=== PATIENT | female | born 1985 | race Caucasian/White ===

== ENCOUNTER → 2016-09-18 | Outpatient (CLI) | payer OTHER ==
[~2016-09-18] VITALS: Ht 167.6 cm; Wt 66.7 kg
[~2016-09-18] MED LIST: HYDROCODONE-AP1 EAC6 PO; IBUPROFEN 200200 M1 PO; MEDROLDOSEPACK PO
--- NOTE | ~2016-09-18 | HPC ---
Formerly [facility] [address] [place] [address] PAIN MANAGEMENT CONSULTATION Name: OMERO KYLE Room #: REG [facility].#: [id number] Admission: 09/18/16 Attend Phys: Zach Ramirez DO Discharge: Date of : 87 Report #: [id number] THIS REPORT FOR: //name// CC: FAM physician/PCP Zach Lacey MD DATE OF SERVICE: 09/18/2016 REFERRING PHYSICIAN: Catherine Lacey M.D. CHIEF COMPLAINT: Neck pain and left upper extremity pain with paresthesias. HISTORY OF PRESENT ILLNESS: As you know, the patient is an extremely pleasant 31-year-old female who was referred to our service for ongoing neck pain and left upper extremity pain with paresthesias. The patient states her pain began on 07/28/2016. She states she woke one morning while she was lying on her stomach. She stated her neck was "in odd position". She states the pain began from there and it progressively worsened. She is now experiencing numbness and tingling radiating down the left arm. She underwent MRI of the cervical spine, which shows significant changes at the C5-C6 and C6-C7 levels. She was referred to our clinic after initiating physical therapy without improvement in symptoms. She was doing stretching, heat and cold compresses, ultrasound therapy and Biofreeze. This did not provide much in the way of benefit. She has also sought chiropractic manipulation and has undergone 7 visits, but no help has been noted. She indicates today pain is continuous. Describes the pain as burning, aching and throbbing; places current pain score as 6/10, daily averages at 7/10, worst pain has been 9/10. The patient states pain is constant, improved with nothing to date. Lying down and medications tend to help slightly. She has been referred to our clinic after MRI was obtained for discussions of treatment for cervical radiculopathy. PAST MEDICAL HISTORY: None. PAST SURGICAL HISTORY: None. SOCIAL HISTORY: The patient denies tobacco, IV or illicit drug use. She admits to approximately 3 alcoholic beverages per week. 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 She is unaccompanied today. REVIEW OF SYSTEMS: Positive for fatigue, weakness, nausea, vomiting, neck pain and left upper extremity pain with paresthesias. All other review of systems negative per 12-point review of systems, other than those listed in the history of present illness. [address] [address] PAIN MANAGEMENT CONSULTATION Name: OMERO KYLE Room #: REG [facility]#: [id number] Admission: 09/18/16 Attend Phys: Zahc Ramirez DO Discharge: Date of : 86 Report #: [id number] Pain impact score 50/70, indicating severe interference to daily activities secondary to pain. ALLERGIES: No known drug allergies. CURRENT MEDICATIONS: Ibuprofen 400 mg 3 times a day, hydrocodone/acetaminophen 5/325 one tab p.o. q. 8 hours p.r.n. for pain. IMAGING: MRI cervical spine, obtained 09/12/2016, shows at C5-C6, a large left lateral recess focal disk extrusion, effacing the proximal left C7 nerve root near its origin; pfxugtkm-kn-tvnvqa left paracentral canal stenosis. C6-C7, rsjbpyks-ga-qtirun central canal stenosis due to a moderate right paracentral disk herniation flattening the spinal cord. At C4-C5, there is mild central canal stenosis due to mild right paracentral broad-based disk herniation. C3-C4, small focal central disk herniation with mild central canal stenosis. PHYSICAL EXAMINATION: VITAL SIGNS: Blood pressure 126/82, pulse 80 and respiratory rate 16, unlabored. The patient is 98% on room air. Height 5 feet 6 inches tall, weight 147 pounds and BMI calculated 23.7. GENERAL: Well-developed, well-nourished and well-hydrated 31-year-old female, appearing her stated age, placing current pain score at 6/10. HEENT: Normocephalic, atraumatic. Pupils equal, round and reactive to light. Extraocular muscles are intact. Sclerae nonicteric, without injection. NEUROLOGIC: Cranial nerves 2-12 grossly intact. Speech is fluent. The patient deemed an excellent historian. LUNGS: Clear. No wheeze, rhonchi or rales. CARDIOVASCULAR: Regular. No appreciable gallop or rub. ABDOMEN: Soft, nontender and nondistended. Normoactive bowel sounds. EXTREMITIES: Show no clubbing, no cyanosis and no edema. MUSCULOSKELETAL: Upper extremity strength appears equal and symmetrical at 5/5. Some giveaway strength noted with biceps flexion on the left when compared to the right. Spurling's test positive to left, negative right. There is normal tactile sensation from C5-T1 dermatomes. Deep tendon reflexes equal and symmetrical at biceps, brachioradialis and triceps. Muscle bulk and tone equal and symmetrical in the upper extremities. Cervical provocation testing including extension, rotation and lateral flexion to the left causes intensification of pain. ASSESSMENT: 1. Cervical radiculopathy. 2. Displacement of a cervical intervertebral disk with radiculopathy. 3. Spinal stenosis of the cervical spine. 4. Cervical spondylosis with radiculopathy. PLAN: [facility] [address] [place] [address] PAIN MANAGEMENT CONSULTATION Name: OMERO KYLE Room #: REG [facility].#: [id number] Admission: 09/18/16 Attend Phys: Zach Ramirez DO Discharge: Date of : 87 Report #: [id number] 1. The patient has been referred to our service for evaluation for suspected cervical radiculopathy. The findings on physical exam correlate with the findings in the MRI of the cervical spine obtained on the 12 of September. Unfortunately, the patient is suffering from a large disk extrusion at the C5-C6 level, causing impingement of the C6 nerve root, radiating down the left upper extremity. She also has findings at the C6-C7 level, which shows eemcyqsh-og-rqjgkk central canal stenosis with rightward disk extrusion, though this is not causing any symptoms at present. The patient and I discussed the treatment options for cervical radicular pain secondary to displaced cervical intervertebral disks and central canal stenosis as well as the lateral recess stenosis. We discussed the following with the patient today. We discussed physical therapy, stretching exercises and traction techniques. We discussed medication management with addition of a neuropathic pain medication for controlling neuropathic symptoms as well as the addition of a Medrol Dosepak to reduce the inflammatory process that is causing acute symptoms. We discussed continuation of mild opioids for pain control. We also discussed cervical epidural injections under fluoroscopic guidance and surgical options. After reviewing risks and benefits of all proposed treatment options, the patient chose to begin with medication management, but does wish to begin the authorization process for cervical epidural injection. The patient was advised that third-constitution party payer restrictions with prior authorization be obtained before she could undergo an epidural injection. This authorization will take somewhere between 4-7 working days. We will begin the process immediately and contact the patient once we have achieved this authorization. We will start the patient on medication as follows: For pain control, we await the preapproval of a cervical epidural injection. 2. The patient was provided Medrol Dosepak. She is to take the medication as directed. This should help alleviate some of the discomfort she is experiencing and decrease the acute phase inflammatory response. She will start this medication immediately. 3. We have provided the patient with a sample pack of Lyrica. She will start at 75 mg dose 2 hours before bedtime tonight. She will continue 75 mg for 3 nights, then escalate to a 150 mg, assuming no side effects and no improvement in symptoms. If she notes improvement in symptoms, stabilize the dose of 75 mg; otherwise, jump to 150 mg, assuming no side effects such as sleepiness, disorientation, confusion or mental slowing. If she notes any side effects, contact our clinic after discontinuing the medication. 4. The patient and I spent 34 minutes of time reviewing her MRI today and discussing how it correlates with her findings. I believe she has a good understanding of the MRI and can make better decisions based on her specific pathology. We are hopeful that our proposed treatment options will be beneficial for her. They are the standard of care for patients with cervical radicular symptoms that do not wish surgical options. 5. We wish to thank the referring team for the opportunity to see the patient [address] [address] PAIN MANAGEMENT CONSULTATION Name: KYLEOMERO Room #: REG [facility]#: [id number] Admission: 09/18/16 Attend Phys: Zach Ramirez DO Discharge: Date of : 87 Report #: [id number] in consultation. We will keep you apprised of her response to treatment as we address her cervical radicular symptoms secondary to cervical spinal stenosis and a displaced cervical intervertebral disk. Again, we wish to thank you for the opportunity to participate in her care. By: [id number] Zach Ramirez DO /nt
[2016-09-18 08:14] VITALS: BP 126/82
== END | disposition home or self-care (01) ==
LOC: PAIN 06:42
DX: M50.122 Cervical disc disorder at C5-C6 level with radiculopathy (principal); M48.02 Spinal stenosis, cervical region; M47.22 Other spondylosis with radiculopathy, cervical region

== ENCOUNTER → 2016-10-08 | Outpatient (CLI) | payer OTHER ==
[~2016-10-08] VITALS: Ht 167.6 cm; Wt 68.2 kg
[~2016-10-08] MED LIST changes: +NEURONTIN 300300 M1 PO
--- NOTE | ~2016-10-08 | HPC ---
[facility] [place] [address] PAIN MANAGEMENT CONSULTATION Name: OMERO KYLE Room #: REG [facility].#: [id number] Admission: 10/08/16 Attend Phys: Zach Ramirez DO Discharge: Date of : 86 Report #: [id number] THIS REPORT FOR: //name// CC: [facility] physician/PCP Zach Lacey MD DATE OF SERVICE: 10/08/2016 CHIEF COMPLAINT: Neck pain, left upper extremity pain and paresthesias. HISTORY OF PRESENT ILLNESS: As you know, the patient is an extremely pleasant 31-year-old female referred to our service for ongoing neck pain, left upper extremity pain and paresthesias. We saw the patient on 09/18/2016, where we diagnosed the patient with cervical radiculopathy secondary to the displacement of cervical intervertebral disk causing radicular symptoms. She was started on Lyrica for neuropathic pain control and did note at 275 mg tablets at night improvement in symptoms. Unfortunately, third republican payer restrictions would not cover this medication further. She returns for medication changes and to undergo the first in series of cervical epidural injections as we have received precertification for the patient to do so. She returns today stating a pain level of 4/10. States her pain is aching, throbbing, numbness, tingling, places pain mainly on the left side, left upper extremity radiating into the hand. She denies new injury, new trauma or any issue that may have progressed her symptoms. She returns today for epidural injection under fluoroscopic guidance in the cervical region and medication changes. ALLERGIES: No medication allergies. CURRENT MEDICATIONS: Hydrocodone 5/325 one tab every 4 hours p.r.n. for pain, ibuprofen 400 mg twice a day, Lyrica 75 mg 2 tabs p.o. at bedtime. SOCIAL HISTORY: The patient denies tobacco, IV or illicit drug use. Admits to approximately 3 alcoholic beverages per week. She is a marketing sales consultant, working, not receiving workmen's compensation, unaccompanied today. PHYSICAL EXAMINATION: VITAL SIGNS: Blood pressure 130/87, pulse 70, respiratory rate 14, unlabored. The patient is 98% on room air. Height 5 feet 6 inches tall, weight 150.4 pounds, BMI calculated 24.3. GENERAL: Well-developed, well-nourished, well-hydrated 31-year-old female appearing her stated age, placing current pain score 4/10. HEENT: Normocephalic, atraumatic. Pupils are equal, round, reactive to light. Extraocular muscles are intact. EXTREMITIES: Show no clubbing, no cyanosis, no edema. MUSCULOSKELETAL: Spurling's test positive left, negative right. [facility] [address] [place] [address] PAIN MANAGEMENT CONSULTATION Name: OMERO KYLE Room #: REG [facility].#: [id number] Admission: 10/08/16 Attend Phys: Zach Ramirez DO Discharge: Date of : 86 Report #: [id number] extremity strength equal and symmetrical 5/5, intact to light touch from C5-T1 dermatomes. ASSESSMENT: 1. Cervical radiculopathy. 2. Displacement of cervical intervertebral disk with radiculopathy. 3. Cervical spinal stenosis. 4. Cervical facet arthropathy. PLAN: 1. The patient has returned today in followup visit to undergo cervical epidural injection under fluoroscopic guidance. We have received precertification for the patient to undergo the procedure. We have discussed with the patient the procedure itself, its risks and its benefits. We discussed risks including but not necessarily limited to bleeding, bruising, infection, worsening pain, no relief of pain, also risk of temporary or permanent muscle weakness, temporary or permanent nerve damage, possible postdural puncture headache and . The patient states understood and wished to proceed. 2. The patient received a letter from her third republican payer that coverage for Lyrica would not be available. We will adjust the patient's medications to gabapentin and determine if neuropathic pain medications such as these will be beneficial. The patient did note good efficacy with the Lyrica at 150 mg at night. She was receiving good benefit, no side effects. We will hopeful to see similar improvement with gabapentin. 3. The patient was provided a prescription of gabapentin 300 mg dose. She will take 2 tabs p.o. at bedtime for 5 nights, then 3 tabs p.o. at bedtime for 5 nights, then 1 tab p.o. q.a.m. 3 tabs p.o. at bedtime. She was given #120, no refills. The patient was advised to watch for side effects such as somnolence, decrease in mental acuity, disorientation, confusion with the use of this medication. If she notes side effects with this medication, she is to contact our clinic for adjustments in therapy. 4. We will see the patient back in followup visit in approximately 2-3 weeks. At that time, we will review efficacy of the cervical epidural injection and determine if a repeat injection would be warranted. PROCEDURE NOTE DESCRIPTION OF PROCEDURE: C7-T1 cervical epidural steroid injection under fluoroscopic guidance. This is the first procedure of the first series that the patient is undergoing. After obtaining written consent, the patient was taken back to the fluoroscopy suite and placed in a prone position with separate pillows under chest and forehead to decrease cervical lordosis. The skin overlying the cervical area was prepped and draped in an aseptic fashion. The C7-T1 vertebral interspace [facility] [address] [place] [address] PAIN MANAGEMENT CONSULTATION Name: OMERO KYLE Room #: REG [facility].#: [id number] Admission: 10/08/16 Attend Phys: Zach Ramirez DO Discharge: Date of : 86 Report #: [id number] was identified by AP fluoroscopy. The skin and subcutaneous tissue overlying the target site of injection was anesthetized using 3 mL of 1% lidocaine. A 20-gauge 3-1/2 inch Tuohy needle was advanced under fluoroscopic guidance toward the epidural space using a midline approach. The epidural space was identified using a loss of resistance to air technique. After negative aspiration for heme or cerebrospinal fluid, a total of 1 mL of Omnipaque was injected. A cervical epidurogram was confirmed using AP and oblique fluoroscopy. After negative aspiration for heme or cerebrospinal fluid, 5 mL of a solution containing 2 mL 40 mg per mL 80 mg total triamcinolone, 3 mL of lidocaine 1% was injected in increments. Contrast spread was noted from posterior epidural space. The needle was then retracted approximately [facility] and the needle track was flushed with 1 mL of 1% lidocaine. There were no apparent new sensory deficits in the upper extremities present following the procedure. A sterile bandage was placed over the injection site. The heart rate, pulse oximetry and blood pressure were continuously monitored after the procedure. There were no apparent complications. The patient tolerated the procedure well and was carefully escorted in the recovery room in stable condition. After meeting discharge criteria, the patient was discharged home. By: [id number] Zach Ramirez DO /nt
[2016-10-08 08:25] VITALS: BP 130/87
== END ==
LOC: PAIN 06:41
DX: M50.10 Cervical disc disorder with radiculopathy, unspecified cervical region (principal); M48.02 Spinal stenosis, cervical region; M12.88 Other specific arthropathies, not elsewhere classified, other specified site

== ENCOUNTER → 2016-10-22 | Outpatient (CLI) | payer OTHER ==
[~2016-10-22] VITALS: Ht 167.6 cm; Wt 67.1 kg
--- NOTE | ~2016-10-22 | HPC ---
[facility] [address] [place] [address] PAIN MANAGEMENT CONSULTATION Name: OMERO KYLE Room #: REG [facility]..#: [id number] Admission: 10/22/16 Attend Phys: Zach Ramirez DO Discharge: Date of : 86 Report #: [id number] THIS REPORT FOR: //name// CC: Zach Lacey MD DATE OF SERVICE: 10/22/2016 REFERRING PHYSICIAN: Catherine Lacey MD. CHIEF COMPLAINT: Neck pain, left upper extremity pain and paresthesias. HISTORY OF PRESENT ILLNESS: As you know, the patient is a very pleasant 31-year-old female, who returns today in followup visit, reporting 60% improvement in overall pain with the cervical epidural injection provided at last visit. She is now placing the pain score at no greater than 4/10. She indicates decreasing neck pain and paresthesias in the left upper extremity. She states that overall she is extremely pleased with the initial injection, returning in followup visit to discuss options for treatment. At present, she states that her pain is tolerable, but is considering a possible repeat epidural injection to build on the success of previous intervention. She also wishes to discuss possible changes in medication therapy and to address the possibility of utilizing some physical therapy. She denies any new injury or new trauma that may have led to progression of symptoms. ALLERGIES: No known drug allergies. CURRENT MEDICATIONS: Hydrocodone 5/325 one tab every 4 hours p.r.n. for pain, ibuprofen 400 mg once a day, Lyrica 150 mg p.o. at bedtime. SOCIAL HISTORY: The patient denies tobacco, IV, or illicit drug use. Admits to three alcoholic beverages per week. She is a strategic marketing specialist, working, not receiving workmen's compensation, and unaccompanied today. IMAGING: No new imaging available. PHYSICAL EXAMINATION: VITAL SIGNS: Blood pressure 129/81, pulse 77, respiratory rate 16, unlabored. The patient is 100% on room air, height 5 feet 6 inches tall, weight 148 pounds, BMI calculated at 23.9. GENERAL: Well developed, well nourished, and well hydrated. A 31-year-old female appearing her stated age. Pain is rated at around 3-4/10. HEENT: Normocephalic and atraumatic. Pupils are equal, round, and reactive to light. Extraocular muscles are intact. EXTREMITIES: Showed no clubbing, no cyanosis, no edema. [facility] [address] [place] [address] PAIN MANAGEMENT CONSULTATION Name: OMERO KYLE Room #: REG [facility]#: [id number] Admission: 10/22/16 Attend Phys: Zach Ramirez DO Discharge: Date of : 86 Report #: [id number] MUSCULOSKELETAL: Spurling's test positive on the left, negative right. Upper extremity strength equal and symmetrical. Muscle bulk and tone equal and symmetrical. Cervical provocation including rotation, lateral flexion to the left causes intensification of pain. ASSESSMENT: 1. Cervical radiculopathy. 2. Displacement of a cervical intervertebral disk with radicular symptoms. 3. Cervical spinal stenosis. 4. Chronic intractable pain. PLAN: 1. The patient returns today in followup visit, where we have discussed the efficacy of the initial epidural injections. She reports a 60% improvement in overall pain that is ongoing. We have recommended the possibility of undergoing the next in the series of epidural injections to build on the success of previous intervention. The patient wishes to have preauthorization made, so that if she needs this injection, she could certainly undergo the procedure. We will begin the authorization process immediately. It should take somewhere between 4-7 working days. We will contact the patient once we have this authorization to undergo the second in the series of cervical epidural injections in hopes of improving pain. 2. We had to exchange the patient's Lyrica for gabapentin as coverage was not going to be possible with her insurance at this time. She is now taking 600 mg of gabapentin at night. She is experiencing no side effects to the medication, but continues to experience paresthesias in the left upper extremity. We have requested the patient increase to 900 mg for the next 7 days. If no side effects, no improvement in symptoms, then increase to 1200 mg. If she is doing well at 900 mg, she is to stabilize at that dose without further escalation. She has medication available to her currently in the form of gabapentin. We did provide her a refill of prescription of 120, 300 mg tablets to reach the titration and maintain this titration, assuming improvement in symptoms. 3. The patient will be sent for physical therapy twice a week for 4 weeks. We have given her a prescription to [facility] in [place]. The patient will begin physical therapy with [facility], starting as early as possible. We will see her back in followup visit, once we have authorization for the cervical epidural injection, and we will have her then stop physical therapy for a week, while she recovers from that procedure, and then restart the physical therapy assuming that she is able to start PT this week. 4. No other changes were made in the patient's treatment today. We will see [address] [address] PAIN MANAGEMENT CONSULTATION Name: OMERO KYLE Room #: REG [facility].#: [id number] Admission: 10/22/16 Attend Phys: Zach Ramirez DO Discharge: Date of : 86 Report #: [id number] her back for the epidural injection requested. We are hopeful the medications and physical therapy, will also improve her symptoms. <ELECTRONICALLY SIGNED> By: Zach Ramirez DO 10/23/16 0937 [id number] Zach Ramirez DO /nt
[2016-10-22 08:25] VITALS: BP 129/81
== END ==
LOC: PAIN 06:52
DX: M79.622 Pain in left upper arm (principal); M50.10 Cervical disc disorder with radiculopathy, unspecified cervical region; M48.02 Spinal stenosis, cervical region; G89.29 Other chronic pain

== ENCOUNTER → 2020-07-25 | Outpatient (CLI) | payer OTHER ==
[~2020-07-25] VITALS: Ht 167.6 cm; Wt 71.2 kg
[~2020-07-25] MED LIST changes: +MELOXICAM7.5 MG PO; +TIZANIDINE HCL2 M1 PO
[2020-07-25 09:26] VITALS: BP 128/79
--- NOTE | 2020-07-25 09:27 | NUR ---
Pain Clinic Assessment: 1. History of Osteoarthritis: Not Applicable History of Rheumatoid Arthritis: Not Applicable 2. Height: 5 ft. 6 in. 167.6 cm. Weight: 157.0 lb. oz. 71.215 kg. Patient's BMI: 25.4 3. Vital Signs: BP: 128/79 Pulse: 73 Resp: 16 Temp: 02 Sat: 100 ECG Mon: 4. Pain Intensity: 5 5. Fall Risk: Dizziness: N Needs help standing or walking: N Fallen in the last 3 months: N Fall risk comments: 6. Patient on Blood Thinner: None 7. History of Hypertension: N 8. Opioid Therapy greater than 6 weeks: N Opiate Contract Signed: 9. Risk Assessment Tool Provided: LOW-1 10. Functional Assessment Tool: 39/ 11. Recreational Drug Use: Never Drug Type: Tobacco Use: Never Smoker Tobacco Type: Amount or Packs/day: How Many Years: Alcohol Use: Yes Frequency: Weekly Quant: 3
--- NOTE | 2020-07-26 11:53 | HPC ---
[facility] [place] [address] PAIN MANAGEMENT CONSULTATION Name: OMERO KYLE Room #: REG [facility].#: [id number] Admission: 07/25/20 Attend Phys: Zach Ramirez DO Discharge: Date of : 87 Report #: [id number] THIS REPORT FOR: cc: Isaac Cooney MD, M. Kathryn MD Johnson, James E. DO ~ DATE OF SERVICE: 07/25/2020 REFERRING PHYSICIAN: Dr. Charles. CHIEF COMPLAINT: Neck pain, left upper extremity pain with paresthesias. HISTORY OF PRESENT ILLNESS: As you know, the patient is a very pleasant 35-year-old female who reports acute onset of neck pain, left upper extremity pain with paresthesias that presented in 12/2019. The patient denies any specific injury or trauma that may have led to symptom development. She has trialled wzzh-iin-wxgcwer medications along with rest, relaxation, repositioning of her head during sleep. She has tried multiple different pillows to assist in pain control. She has even sought chiropractic manipulation 5 different times, which provided some improvement in symptoms, but nothing prolonged. She continues to experience pain at a level of 5+/10 radiating from the neck down the left arm into her hand. Due to lack of improvement with conservative treatment, the patient was referred to our clinic. She has undergone MRI of the cervical spine, which showed fairly significant changes at the C4-C5, C5-C6 and C6-C7 levels. The patient reports today her pain is continuous and steady. She describes the pain as burning, aching, throbbing, numbness and tingling. She places current pain score 5+/10, daily average at 5-7/10, worst the pain has been is 9-10/10. The patient states her pain is exacerbated with sitting, sleeping and cervical rotation. Pain improves with nothing to date. She has been referred to our service to discuss treatment options for possible cervical radiculopathy. PAST MEDICAL HISTORY: None. PAST SURGICAL HISTORY: None. SOCIAL HISTORY: The patient denies tobacco, IV or illicit drug use. Admits an approximately 3 alcoholic beverages per week. She is currently employed in [employer], working, not receiving workmen's compensation nor is she trying to obtain discrete benefits. She is not in litigation in regards to pain. She is unaccompanied at today's visit. REVIEW OF SYSTEMS: Positive for fatigue and weakness, frequent and recurrent headaches, nocturia, numbness and tingling sensations, neck pain and upper back pain and left upper extremity pain with paresthesias. All other review of [address] [address] PAIN MANAGEMENT CONSULTATION Name: OMERO KYLE Room #: REG [facility].#: [id number] Admission: 07/25/20 Attend Phys: Zach Ramirez DO Discharge: Date of : 87 Report #: [id number] systems negative per 12-point review of systems other than those listed in history of present illness. Pain impact score 39/70 indicating moderate interference of daily activities secondary to pain. ALLERGIES: No known drug allergies. CURRENT MEDICATIONS: Meloxicam 7.5 mg once a day, tizanidine 2 mg p.r.n. IMAGING: MRI cervical spine obtained 07/14/2020 shows C2-C3, C3-C4 unremarkable. C4-C5 shows broad-based undulating posterior disk osteophyte complex with superimposed shallow left paracentral disk protrusion, combinations indent and effaces the ventral thecal sac causing severe central canal stenosis with narrowing of the canal to 6 mm. No significant neural foraminal stenosis. C5-C6 shows broad-based posterior disk osteophyte complex, left paracentral/lateral recess disk protrusion. Marked left paracentral and left lateral recess stenosis, tlnesuby-zw-rcgygl central canal stenosis. There is definitive impingement of the exiting left C6 nerve root. Mild right neural foraminal stenosis. C6-C7, broad-based posterior disk osteophyte complex indenting the ventral thecal sac and spinal canal causing severe central canal stenosis with measurement of 6 mm, mild bilateral neural foraminal stenosis. C7-T1 unremarkable. PHYSICAL EXAMINATION: VITAL SIGNS: Blood pressure 120/79, pulse 73, respiratory rate 16 and unlabored. The patient is 100% on room air. Height 5 feet 6 inches tall, weight 157 pounds, BMI calculated 25.4. GENERAL: Well-developed, well-nourished, well-hydrated 35-year-old female appearing her stated age, placing current pain score at 5/10. HEENT: Normocephalic, atraumatic. Pupils equal, round and reactive to light. Extraocular muscles are intact. NEUROLOGIC: Speech fluent. The patient deemed an excellent historian. She is wearing a mask in compliance with COVID-19 regulations. LUNGS: Clear. No appreciable wheezes, rhonchi or rales. CARDIOVASCULAR: Regular. No appreciable gallop, no rub. EXTREMITIES: Show no clubbing, no cyanosis, and no edema. MUSCULOSKELETAL: Upper extremity strength appears symmetrical 5/5. Slight giveaway strength noted with biceps flexion on the left when compared to the right. There is palpatory tenderness over the left paraspinal musculature of the cervical spine with radiation all the way to the medial aspect of the scapula. Spurling's test positive left, negative right. Cervical provocation testing including rotation and lateral flexion to the left causes intensification of pain, negative to the right. Extension is mildly restricted with no change in overall symptoms. Cervical traction does tend to improve symptoms mildly. [facility] [address] [place] [address] PAIN MANAGEMENT CONSULTATION Name: ANNMARIE KYLEOmid Gu Room #: REG [facility].#: [id number] Admission: 07/25/20 Attend Phys: Zach Ramirez DO Discharge: Date of : 87 Report #: [id number] ASSESSMENT: 1. Cervical radiculopathy. 2. Severe central canal stenosis of the cervical spine. 3. Displacement of cervical intervertebral disk with radiculopathy. 4. Cervical degeneration. 5. Neural foraminal stenosis of the cervical spine. 6. Chronic intractable pain. PLAN: 1. Based on today's physical exam and history the patient has provided, the description the patient uses in regard to pain as well as location of symptoms, it would appear she is suffering from a C6 left cervical radiculopathy. We have reviewed with the patient the findings of her physical exam, how they correlate to the findings in the MRI dated 07/14/2020. It would appear the symptoms that she is experiencing are from the C5-C6 level, but when comparing her MRI to 2017 imaging, there has been significant changes at the C4-C5 level and to a lesser degree at C6-C7 level. We have discussed this with the patient today. After discussion of the findings and how they correlate to her symptoms, we then discussed the treatment options as follows. We discussed physical therapy, stretching exercises and traction techniques as a treatment course. We discussed medication management, adding neuropathic pain medication such as amitriptyline, nortriptyline, Cymbalta, Lyrica or gabapentin as a potential analgesic treatment. We discussed cervical epidural injections for which the patient was referred to our clinic. We also discussed surgical options with the patient to address the C4-C5, C5-C6 and C6-C7 levels with decompressive fusion. After reviewing the risks and benefits of all the proposed treatment options, the patient chose to begin with cervical epidural injection under fluoroscopic guidance. 2. The patient was advised due to third democrat payer restrictions, authorization would have to be obtained before the patient could undergo a cervical epidural injection. Authorization could take anywhere from 4-7 working days. We will begin this process immediately. We will have her return once that authorization has been completed. I did advise the patient if we were able to obtain this authorization earlier, we will have her return to undergo the first in the series of cervical epidural injection as quickly as possible. 3. No medication changes made at today's visit. The patient will continue current medical therapy as prior prescribed. 4. We plan to see the patient back in followup visit for a cervical epidural injection once authorization has been obtained. We are hopeful we can obtain this authorization quickly and have her return as rapidly as possible to address this issue. 5. We wish to thank the referring physician for the opportunity to see the patient in consultation. We will keep you apprised of response to treatment as [address] [address] PAIN MANAGEMENT CONSULTATION Name: DWIGHT KYLEHANNAH Gu Room #: REG [facility] Sousa#: [id number] Admission: 07/25/20 Attend Phys: Zach Ramirez DO Discharge: Date of : 87 Report #: [id number] we address cervical radiculopathy. Again, we wish to thank you for the opportunity to see the patient in consultation. <ELECTRONICALLY SIGNED> By: Zach Ramirez DO 07/26/20 1153 [id number] 1242 Zach Ramirez DO /nt
== END ==
LOC: PAIN 06:49
PROVIDERS: ATTEND Anesthesiology Pain Medicine
DX: M50.10 Cervical disc disorder with radiculopathy, unspecified cervical region (principal); M48.02 Spinal stenosis, cervical region; G89.29 Other chronic pain; Z88.8 Allergy status to other drugs, medicaments and biological substances; Z79.899 Other long term (current) drug therapy

== ENCOUNTER → 2020-07-26 | Outpatient (CLI) | payer OTHER ==
[~2020-07-26] VITALS: Ht 167.6 cm; Wt 71.6 kg
--- NOTE | ~2020-07-26 | HPC ---
[address] [place] [address] PAIN MANAGEMENT CONSULTATION Name: OMREO KYLE Room #: REG [facility]..#: [id number] Admission: 07/26/20 Attend Phys: Zach Ramirez DO Discharge: Date of : 87 Report #: [id number] THIS REPORT FOR: cc: Isaac Cooney MD, M. Kathryn MD Johnson, James E. DO ~ DATE OF SERVICE: 07/26/2020 CHIEF COMPLAINT: Neck pain, left upper extremity pain with paresthesias. HISTORY OF PRESENT ILLNESS: As you know, the patient is a very pleasant 35-year-old female, who reports acute onset of neck pain, left upper extremity pain with paresthesias that presented 12/2019. Denies any specific injury or trauma that may have led to development. She was noted to have an ongoing pain, left upper extremity pain consistent with cervical radiculopathy, sought evaluation through chiropractic manipulation, who provided 5 different treatments, which provided transient improvement. She underwent MRI of the cervical spine, which showed significant changes at C4-C5, C5-C6 and C6-C7 and subsequently referred to our clinic. We saw the patient in consultation yesterday 07/25/2020, where she was diagnosed with cervical radiculopathy secondary to central canal stenosis. Her central canal stenosis is multifactorial due to facet arthropathy and disk desiccation. We discussed with the patient at that visit the treatment options. She chose to undergo a cervical epidural injection under fluoroscopic guidance. She was established today's appointment to undergo the epidural injection, as she was able to clear her schedule for the rest of the day, being able to go home, and take it easy after the injection, which we request patients to do. She returns today in followup visit reporting a pain score of 5/10. There have been no changes in medical management since our last visit of yesterday. ALLERGIES: No known drug allergies. CURRENT MEDICATIONS: Meloxicam 7.5 mg once a day, tizanidine 2 mg q. 8 hours p.r.n. pain. SOCIAL HISTORY: The patient denies tobacco, IV or illicit drug use. Admits to approximately 3 alcoholic beverages per week. She is employed, working, not receiving workmen's compensation, unaccompanied today. IMAGING: No new imaging available. PHYSICAL EXAMINATION: VITAL SIGNS: Blood pressure 115/70, pulse 79, respiratory rate 14 and unlabored. The patient is 100% on room air. Height 5 feet 6 inches tall, weight 157.8 pounds, BMI calculated 25.5. GENERAL: Well-developed, well-nourished, well-hydrated, 35[place] [address] PAIN MANAGEMENT CONSULTATION Name: OMERO KYLE Room #: REG [facility] Lars#: [id number] Admission: 07/26/20 Attend Phys: Zach Ramirez DO Discharge: Date of : 87 Report #: [id number] appearing her stated age. She is in no acute distress, awake, alert and oriented x 3. Current pain score rated at 5/10. HEENT: Normocephalic, atraumatic. Pupils equal, round and reactive. The patient is wearing a mask in compliance with COVID-19 regulations. EXTREMITIES: Show no clubbing, no cyanosis, and no edema. MUSCULOSKELETAL: Upper extremity strength remains symmetrical 5/5. Palpatory tenderness is once again noted over the left paraspinal musculature. Spurling's test, positive left. ASSESSMENT: 1. Symptomatic cervical radiculopathy. 2. Severe central canal stenosis of the cervical spine. 3. Displacement of cervical intervertebral disk with radiculopathy. 4. Cervical degeneration. 5. Neural foraminal stenosis of the cervical spine. 6. Chronic intractable pain. PLAN: 1. The patient has returned today in followup visit to undergo cervical epidural injection under fluoroscopic guidance. The patient was made today's appointment, as she was able to clear her schedule for the afternoon to be able to go home and relax after the procedure. We have noted that those individuals that do allow for a 24-hour time period without high activity tend to show better efficacy with injections than those people that return directly to activity. She returns today to undergo a cervical epidural injection under fluoroscopic guidance. The patient has been advised risks and benefits of a cervical epidural injection. These risks include, but are not necessarily limited to, bleeding, bruising, infection, worsening pain, no relief of pain, also risk of temporary or permanent muscle weakness, temporary or permanent nerve damage, possible paralysis, post-dural puncture headache and . The patient states she understood and wished to proceed. 2. No medication changes made at today's visit. The patient will continue current medical therapy as prior prescribed. 3. We plan to see the patient back in followup visit on an as needed basis for the next in the series of epidural injections. We discussed that she is to contact our clinic once her symptoms begin to return. We will see her back to undergo next in the series of cervical epidural injections. PROCEDURE NOTE DESCRIPTION OF PROCEDURE: C7-T1 cervical epidural steroid injection under fluoroscopic guidance. This is the first procedure of the first series that the patient is undergoing. After obtaining written consent, the patient was taken back to the fluoroscopy [address] [address] PAIN MANAGEMENT CONSULTATION Name: OMERO KYLE Room #: REG [facility]#: [id number] Admission: 07/26/20 Attend Phys: Zach Ramirez DO Discharge: Date of : 87 Report #: [id number] suite and placed in a prone position with separate pillows under chest and forehead to decrease cervical lordosis. The skin overlying the cervical area was prepped and draped in an aseptic fashion. The C7-T1 vertebral interspace was identified by AP fluoroscopy. The skin and subcutaneous tissue overlying the target site of injection was anesthetized using 3 mL of 1% lidocaine. A 20-gauge 3-1/2-inch Tuohy needle was advanced under fluoroscopic guidance toward the epidural space using a midline approach. The epidural space was identified using a loss of resistance to air technique. After negative aspiration for heme or cerebrospinal fluid, a total of 1 mL of Omnipaque was injected. A cervical epidurogram was confirmed using AP and oblique fluoroscopy. After negative aspiration for heme or cerebrospinal fluid, 5 mL of a solution containing 2 mL 40 mg per mL, 80 mg triamcinolone along with 3 mL of lidocaine 1% was injected in increments. Contrast spread was noted from posterior epidural space. The needle was then retracted approximately half-way and the needle track was flushed with 1 mL of 1% lidocaine. There were no apparent new sensory deficits in the upper extremities present following the procedure. A sterile bandage was placed over the injection site. The heart rate, pulse oximetry and blood pressure were continuously monitored after the procedure. There were no apparent complications. The patient tolerated the procedure well and was carefully escorted in the recovery room in stable condition. After meeting discharge criteria, the patient was discharged home. By: [id number] 1804 Zach Ramirez DO /nt
[2020-07-26 13:28] VITALS: BP 115/70
--- NOTE | 2020-07-26 13:42 | NUR ---
Pain Clinic Assessment: 1. History of Osteoarthritis: Not Applicable History of Rheumatoid Arthritis: Not Applicable 2. Height: 5 ft. 6 in. 167.6 cm. Weight: 157.8 lb. oz. 71.578 kg. Patient's BMI: 25.5 3. Vital Signs: BP: 115/70 Pulse: 79 Resp: 14 Temp: 02 Sat: 100 ECG Mon: 4. Pain Intensity: 5 5. Fall Risk: Dizziness: N Needs help standing or walking: N Fallen in the last 3 months: N Fall risk comments: 6. Patient on Blood Thinner: None 7. History of Hypertension: N 8. Opioid Therapy greater than 6 weeks: N Opiate Contract Signed: 9. Risk Assessment Tool Provided: LOW-1 10. Functional Assessment Tool: 11. Recreational Drug Use: Never Drug Type: Tobacco Use: Never Smoker Tobacco Type: Amount or Packs/day: How Many Years: Alcohol Use: Yes Frequency: Weekly Quant: 2
== END | disposition home or self-care (01) ==
LOC: PAIN 06:56
PROVIDERS: ATTEND Anesthesiology Pain Medicine
DX: M50.10 Cervical disc disorder with radiculopathy, unspecified cervical region (principal); M48.02 Spinal stenosis, cervical region; Z98.890 Other specified postprocedural states; Z79.899 Other long term (current) drug therapy; Z88.8 Allergy status to other drugs, medicaments and biological substances